=== PATIENT | male | born 1975 | race Caucasian/White ===

== ENCOUNTER 2024-11-14 14:30 | Inpatient (IN) | payer MEDICAID ==
[~2024-11-14] VITALS: Ht 160 cm; Wt 73.4 kg
[2024-11-14] VITALS (14 sets, daily range): BP systolic 108–144; BP diastolic 65–86; PULSE 85–116; RESP 13–18; TEMP 98.3–99.2; O2SAT 97–100
[2024-11-14] MEDS ORDERED: acetaminophen 325mg tablet PO PRN (16:05)
[2024-11-14] MEDS ORDERED: ondansetron/PF 4mg/2ml inj IV PRN ×2 (16:05→21:05)
[2024-11-14] MEDS ORDERED: potassium Cl 40MEQ/1/2NS 520ml 520 ML IV PRN (16:05)
[2024-11-14] MEDS ORDERED: magnesium sulf-water 4G/100mL 100 ML IV PRN (16:05)
[2024-11-14] MEDS ORDERED: magnesium Cl slow-release 64mg tablet PO PRN (16:05)
[2024-11-14] MEDS ORDERED: magnesium sulf-water 2g/50mL 50 ML IV PRN (16:05)
[2024-11-14] MEDS ORDERED: potassium Cl 20 mEq SR tablet PO PRN ×2 (16:05)
[2024-11-14 17:13] LABS: BASOPHILS % (AUTO) 0.3 % (0-1); EOSINOPHILS # (AUTO) 0.1 X10'3 (0-0.9); EOSINOPHILS % (AUTO) 0.8 % (0-6); HEMOGLOBIN 13.2 g/dl (14.0-17.9); LYMPHOCYTES # (AUTO) 0.9 X10'3 (1.1-4.8); LYMPHOCYTES % (AUTO) 7.7 % (21-51); MEAN CORPUSCULAR HEMOGLOBIN 28.4 PG (27.0-31.0); MEAN CORPUSCULAR HGB CONC 32.9 g/dL (33.0-36.5); MEAN CORPUSCULAR VOLUME 86.4 FL (78-98); MEAN PLATELET VOLUME 7.4 FL (7.4-10.4); MONOCYTES # (AUTO) 1.8 X10'3 (0-0.9); MONOCYTES % (AUTO) 15.8 % (2-12); NEUTROPHILS # (AUTO) 8.4 X10'3 (1.8-7.7); NEUTROPHILS % (AUTO) 75.4 % (42-75); PLATELET COUNT 198 X10'3 (140-440); RED BLOOD COUNT 4.63 X10'6 (4.70-6.10); RED CELL DISTRIBUTION WIDTH 13.3 % (11.5-14.5); WHITE BLOOD COUNT 11.2 X10'3 (4.5-11.0)
[2024-11-14 17:19] LABS: APTT 29 SECONDS (22-32); INR 1.1 INR; PROTHROMBIN TIME 11.4 SECONDS (9.0-12.0)
[2024-11-14 17:21] LABS: ALANINE AMINOTRANSFERASE 92 U/L (12-78); ALBUMIN/GLOBULIN RATIO 0.5 (1.1-1.5); ALKALINE PHOSPHATASE 85 IU/L (46-116); ANION GAP 10 (8-16); ASPARTATE AMINO TRANSFERASE 54 U/L (10-37); BILIRUBIN,TOTAL 0.2 MG/DL (0.1-1.0); BLOOD UREA NITROGEN 53 MG/DL (7-18); BUN/CREATININE RATIO 10.8 (10.0-20.0); CALCIUM 7.2 MG/DL (8.5-10.1); CHLORIDE 100 MMOL/L (99-107); CREATININE 4.92 MG/DL (0.60-1.10); GLUCOSE 110 MG/DL (70-104); MAGNESIUM 2.1 MG/DL (1.5-2.4); PHOSPHORUS 3.7 MG/DL (2.3-4.5); POTASSIUM 5.4 MMOL/L (3.5-5.1); SODIUM 133 MMOL/L (135-145); TOTAL CARBON DIOXIDE 23.3 MMOL/L (24-32); TOTAL PROTEIN 6.4 G/DL (6.4-8.2); eCRCL 14 ML/MIN; eGFR 13 ML/MIN
[2024-11-14] MEDS: normal saline 1000ml 1,000 ML IV SCH (17:36)
[2024-11-14 17:42] LABS: HEMOGLOBIN A1C 5.5 % (4.5-6.2)
[2024-11-14] MEDS ORDERED: LORazepam 1 MG tablet PO PRN (18:00)
[2024-11-14] MEDS ORDERED: haloperidol 5mg tablet PO PRN (18:00)
[2024-11-14 18:03] LABS: PLATELET ESTIMATE NORMAL; TOTAL CELLS COUNTED 100
[2024-11-14] MEDS ORDERED: HYDROmorphone/PF 0.2 MG/ML SYRINGE IV PRN ×3 (18:15→21:05)
[2024-11-14] MEDS: HYDROmorphone inj. 0.5 MG/0.5 ML DISP.SYRIN IV PRN (19:24)
[2024-11-14] MEDS: CefTRIAXone/D5W-Rocephin 1gm 50 ML IV SCH (19:29)
[2024-11-14] MEDS: albuterol 2.5 MG/3 ML nebule NEB ONE (19:34)
[2024-11-14] MEDS: insulin regular, human 10 units/0.1 ml syringe IV ONE (19:38)
[2024-11-14] MEDS: dextrose 50%-water 50ml dispensing syringe IV ONE (19:39)
[2024-11-14] MEDS: docusate sod 100mg capsule PO SCH (20:00)
[2024-11-14] MEDS: K and/or MAG REPLACEMENT MC SCH (20:00)
[2024-11-14] MEDS: normal saline 1000ml 1,000 ML IV ONE (21:05)
[2024-11-14] MEDS ORDERED: labetalol 20mg/4ml (5mg/ml) syringe IV PRN (21:05)
[2024-11-14] MEDS ORDERED: morphine 2 MG/ML inj. syringe IV PRN (21:05)
[2024-11-14] MEDS ORDERED: proCHLORperazine 10 MG/2 ml inj IV PRN (21:05)
[2024-11-14] MEDS ORDERED: morphine 4 MG/ML inj SYRINge IV PRN (21:05)
[2024-11-14] MEDS ORDERED: hydrALAZINE 20mg/ml inj. IV PRN (21:05)
[2024-11-14] MEDS ORDERED: acetaminophen 1,000mg/100ml IV 100 ML IV PRN (21:05)
[2024-11-14] MEDS ORDERED: iohexol 350MG/ML 100ml bottle IV ONE (21:23)
[2024-11-14] MEDS ORDERED: sevoflurane 250ml liquid IH ONE (21:34)
[2024-11-14] MEDS ORDERED: fentaNYL/PF 50MCG/1 ML 2ML syringe ONE (21:40)
[2024-11-14] MEDS ORDERED: midazolam 1 mg/ML 2ml injection ONE (21:40)
[2024-11-14] MEDS ORDERED: ondansetron/PF 4mg/2ml inj ONE (21:47)
[2024-11-14] MEDS ORDERED: dexamethasone sod phosphate 4mg/ml inj. ONE (21:47)
[2024-11-14] MEDS ORDERED: LIDOcaine 2% (20mg/ml) 5ml vial ONE (21:47)
[2024-11-14] MEDS ORDERED: propofol inj 20 ML IV ONE (21:47)
[2024-11-14] MEDS ORDERED: ceFAZolin 1000mg inj ONE (21:54)
[2024-11-15] VITALS (9 sets, daily range): BP systolic 108–131; BP diastolic 42–85; PULSE 55–95; RESP 15–20; TEMP 97.5–98.2; O2SAT 97–100
[2024-11-15 02:30] LABS: BILIRUBIN,URINE NEGATIVE (Neg); CLARITY,URINE SLIGHTLY CLOUDY (Clear); COLOR,URINE YELLOW (Yellow); GLUCOSE, URINE NEGATIVE (Neg); KETONES,URINE NEGATIVE (Neg); LEUKOCYTE ESTERASE ,URINE LARGE (Neg); NITRITES, URINE NEGATIVE (Neg); OCCULT BLOOD,URINE LARGE (Neg); PROTEIN,URINE NEGATIVE (Neg); UROBILINOGEN,URINE 0.2 E.U/dL (0.2-1.0)
[2024-11-15 02:34] LABS: TOTAL PROTEIN,URINE RANDOM 22.6 MG/DL
[2024-11-15 02:39] LABS: UA COLLECTION TYPE NON-SPECIFIED
[2024-11-15 02:41] LABS: BACTERIA,URINE NONE SEEN /HPF (Neg); MUCUS STRANDS FEW /LPF (Neg); RBC,URINE 0-2 /HPF (0-2); SQUAMOUS EPITHELIAL CELL,UR FEW /LPF (FEW)
[2024-11-15 06:09] LABS: BASOPHILS % (AUTO) 0.2 % (0-1); EOSINOPHILS % (AUTO) 0.1 % (0-6); HEMATOCRIT 39.3 % (42.0-52.0); LYMPHOCYTES # (AUTO) 0.2 X10'3 (1.1-4.8); LYMPHOCYTES % (AUTO) 2.4 % (21-51); MEAN CORPUSCULAR HEMOGLOBIN 28.8 PG (27.0-31.0); MEAN CORPUSCULAR VOLUME 87.2 FL (78-98); MEAN PLATELET VOLUME 7.5 FL (7.4-10.4); MONOCYTES # (AUTO) 0.3 X10'3 (0-0.9); MONOCYTES % (AUTO) 3.4 % (2-12); NEUTROPHILS # (AUTO) 8.2 X10'3 (1.8-7.7); NEUTROPHILS % (AUTO) 93.9 % (42-75); PLATELET COUNT 198 X10'3 (140-440); RED BLOOD COUNT 4.51 X10'6 (4.70-6.10); RED CELL DISTRIBUTION WIDTH 13.3 % (11.5-14.5); WHITE BLOOD COUNT 8.7 X10'3 (4.5-11.0)
[2024-11-15 06:26] LABS: ALANINE AMINOTRANSFERASE 83 U/L (12-78); ALBUMIN 1.8 G/DL (3.4-5.0); ALBUMIN/GLOBULIN RATIO 0.4 (1.1-1.5); ALKALINE PHOSPHATASE 84 IU/L (46-116); ANION GAP 9 (8-16); ASPARTATE AMINO TRANSFERASE 41 U/L (10-37); BILIRUBIN,TOTAL 0.2 MG/DL (0.1-1.0); BLOOD UREA NITROGEN 52 MG/DL (7-18); BUN/CREATININE RATIO 11.8 (10.0-20.0); CALCIUM 7.6 MG/DL (8.5-10.1); CHLORIDE 105 MMOL/L (99-107); CREATININE 4.42 MG/DL (0.60-1.10); FREE T4 (FREE THYROXINE) 1.61 NG/DL (0.73-1.40); GLUCOSE 189 MG/DL (70-104); LACTATE DEHYDROGENASE 228 U/L (85-227); MAGNESIUM 2.1 MG/DL (1.5-2.4); POTASSIUM 5.3 MMOL/L (3.5-5.1); SODIUM 136 MMOL/L (135-145); THYROID STIMULATING HORMONE 0.51 ulU/ml (0.34-4.50); TOTAL CARBON DIOXIDE 21.6 MMOL/L (24-32); TOTAL PROTEIN 6.5 G/DL (6.4-8.2); eCRCL 16 ML/MIN; eGFR 14 ML/MIN
[2024-11-15] MEDS ORDERED: NO HOME MEDS (14:48)
[2024-11-16 05:23] LABS: BASOPHILS % (AUTO) 0.1 % (0-1); EOSINOPHILS % (AUTO) 0.1 % (0-6); HEMATOCRIT 40.7 % (42.0-52.0); HEMOGLOBIN 13.5 g/dl (14.0-17.9); LYMPHOCYTES # (AUTO) 0.7 X10'3 (1.1-4.8); LYMPHOCYTES % (AUTO) 5.1 % (21-51); MEAN CORPUSCULAR HEMOGLOBIN 28.5 PG (27.0-31.0); MEAN CORPUSCULAR HGB CONC 33.1 g/dL (33.0-36.5); MEAN CORPUSCULAR VOLUME 85.9 FL (78-98); MEAN PLATELET VOLUME 7.5 FL (7.4-10.4); NEUTROPHILS % (AUTO) 87.7 % (42-75); PLATELET COUNT 256 X10'3 (140-440); RED BLOOD COUNT 4.74 X10'6 (4.70-6.10); RED CELL DISTRIBUTION WIDTH 13.5 % (11.5-14.5); WHITE BLOOD COUNT 13.7 X10'3 (4.5-11.0)
[2024-11-16 05:48] LABS: ALANINE AMINOTRANSFERASE 73 U/L (12-78); ALBUMIN 1.8 G/DL (3.4-5.0); ALBUMIN/GLOBULIN RATIO 0.4 (1.1-1.5); ALKALINE PHOSPHATASE 87 IU/L (46-116); ANION GAP 7 (8-16); ASPARTATE AMINO TRANSFERASE 27 U/L (10-37); BILIRUBIN,TOTAL 0.2 MG/DL (0.1-1.0); BLOOD UREA NITROGEN 47 MG/DL (7-18); BUN/CREATININE RATIO 18.4 (10.0-20.0); CHLORIDE 109 MMOL/L (99-107); CREATININE 2.55 MG/DL (0.60-1.10); GLUCOSE 132 MG/DL (70-104); MAGNESIUM 1.7 MG/DL (1.5-2.4); POTASSIUM 5.4 MMOL/L (3.5-5.1); SODIUM 140 MMOL/L (135-145); TOTAL CARBON DIOXIDE 24.4 MMOL/L (24-32); TOTAL PROTEIN 6.5 G/DL (6.4-8.2); eCRCL 28 ML/MIN; eGFR 27 ML/MIN
[2024-11-16 06:00] VITALS: BP 134/75; PULSE 73; RESP 15; TEMP 97.5; O2SAT 98
[2024-11-16 08:00] VITALS: RESP 16; O2SAT 99
[2024-11-16 10:00] VITALS: BP 134/71; PULSE 88; RESP 18; TEMP 98.2; O2SAT 99
[2024-11-16] MEDS ORDERED: LEVO-65 PO (12:54)
== END 2024-11-16 15:30 | disposition home or self-care (01) | DRG 463 ==
LOC: SUR 3N 14:30
PROVIDERS: ADMIT Family Medicine; ATTEND Internal Medicine
PROC: 0T768DZ Dilation of Right Ureter with Intraluminal Device, Via Natural or Artificial Opening Endoscopic (ICD-10-PCS; 2024-11-14)
PROC: BT1D1ZZ Fluoroscopy of Right Kidney, Ureter and Bladder using Low Osmolar Contrast (ICD-10-PCS; principal; 2024-11-14 21:34)
DX: N13.6 Pyonephrosis (principal); N17.9 Acute kidney failure, unspecified; E87.5 Hyperkalemia; F12.90 Cannabis use, unspecified, uncomplicated; F17.210 Nicotine dependence, cigarettes, uncomplicated; N13.9 Obstructive and reflux uropathy, unspecified; Z87.442 Personal history of urinary calculi
CPT/HCPCS: 36415; 71045; 74420; 76000; 80053; 81001; 82570; 82948; 83036; 83605; 83615; 83735; 84100; 84132; 84156; 84300; 84439; 84443; 85007; 85025; 85610; 85651; 85730; 87040; 87081; 87088; 87207; 93005; 94640; A4615; A4618; C1758; C1769; C2617; G0378; J0690; J0696; J1100; J1171; J1815; J2003; J2250; J2405; J2704; J3010; J3490; J7030; Q9967